=== PATIENT | female | born 1950 | race Caucasian/White ===

== ENCOUNTER 2021-06-02 07:44 | Day surgery (SDC) | payer MEDICARE, BC ==
[~2021-06-02 07:44] MED LIST: Midazolam 1 MG/ML 2 ML SDV ONE; Propofol 200 MG/20 ML SDV ONE; fentaNYL 100 MCG/2 ML SDV ONE
[2021-06-02] MEDS: Sodium Chloride 0.9% 1,000 ML IV SCH (08:23)
[2021-06-02 10:33] VITALS: BP 143/73; PULSE 62
--- NOTE | 2021-06-02 11:58 | OR ---
DATE OF PROCEDURE: 06/02/2021 SURGEON: Damon Osorio MD PREOPERATIVE DIAGNOSIS: Positive Cologuard. POSTOPERATIVE DIAGNOSIS: Positive Cologuard. PROCEDURE: Colonoscopy. FINDINGS: Diverticulosis, mild, limited to sigmoid colon. COMPLICATIONS: None. MAIL PROCESSING ASSOCIATE: None. ANESTHETIC: MAC. RISKS: Risks, benefits, alternatives, limitations including, but not limited to, infection; bleeding; perforation; false positives; and false negatives were explained to the patient. They wished to proceed. PROCEDURE IN DETAIL: The patient was placed in left lateral decubitus position. Digital rectal exam was performed without abnormality. Scope was introduced and advanced atraumatically to the ileocecal valve. A photo was taken. The scope was brought back to the ascending, transverse, descending colon, and retroflexed. No evidence of old or new blood. No masses. No polyps. The prep was acceptable. Approximately 90% of the luminal surface could be seen with some solid and liquid stool remaining. No abnormalities on retroflexion. Greater than 8 minutes was spent on removing scope. The patient tolerated the procedure well. Damon Osorio MD /[id number]
== END 2021-06-02 10:20 | disposition home or self-care (01) ==
LOC: JP.SDS 07:44
PROVIDERS: ATTEND Surgery
DX: K57.30 Diverticulosis of large intestine without perforation or abscess without bleeding (principal)
CPT/HCPCS: J2250; J2704; J3010; J7030

== ENCOUNTER 2024-03-28 03:42 | Emergency (ER) | payer MEDICARE, BC ==
[2024-03-28 03:59] VITALS: BP 179/113; PULSE 84
[2024-03-28] MEDS: Ketorolac 15 MG/ML SDV IM ONE (04:30)
[2024-03-28] MEDS: HYDROmorphone 0.5 MG/0.5 ML Syringe IM ONE (04:30)
== END 2024-03-28 04:44 | disposition home or self-care (01) ==
LOC: JP.ED 03:42
DX: M41.9 Scoliosis, unspecified (principal); I10 Essential (primary) hypertension; J44.9 Chronic obstructive pulmonary disease, unspecified; K21.9 Gastro-esophageal reflux disease without esophagitis; Z86.16 Personal history of COVID-19; Z90.710 Acquired absence of both cervix and uterus; E78.00 Pure hypercholesterolemia, unspecified; Z79.899 Other long term (current) drug therapy; Z79.82 Long term (current) use of aspirin; Z88.8 Allergy status to other drugs, medicaments and biological substances; Z91.048 Other nonmedicinal substance allergy status
CPT/HCPCS: 96372; 96374; 99282; J1170; J1885; 99283

== ENCOUNTER 2024-04-12 07:21 | Day surgery (SDC) | payer MEDICARE, BC ==
[~2024-04-12 07:21] MED LIST changes: -Midazolam 1 MG/ML 2 ML SDV ONE; -fentaNYL 100 MCG/2 ML SDV ONE; +fentaNYL 50 MCG/ML SDV ONE
[2024-04-12] MEDS: Sodium Chloride 0.9% 1,000 ML IV SCH (07:38)
[2024-04-12 11:39] VITALS: BP 156/95; PULSE 99
== END 2024-04-12 11:48 | disposition home or self-care (01) ==
LOC: JP.SDS 07:21
PROVIDERS: ATTEND Surgery
DX: K31.7 Polyp of stomach and duodenum (principal); K22.89 Other specified disease of esophagus; I10 Essential (primary) hypertension; E66.9 Obesity, unspecified; K21.9 Gastro-esophageal reflux disease without esophagitis
CPT/HCPCS: 00731; 43239; 88305; J2704; J3010; J7030